=== PATIENT | male | born 2000 | race Caucasian/White ===

== ENCOUNTER 2024-09-13 10:59 | Observation (INO) ==
[2024-09-13 13:25] VITALS: BMI 72.6
[2024-09-13 13:43] LABS: BASOPHILS # (AUTO) 0.1 X10^3/uL (0.0-0.1); EOSINOPHILS # (AUTO) 0.2 x10^3/uL (0.0-0.2); EOSINOPHILS % (AUTO) 1.9 % (0.9-2.9); HEMATOCRIT 39.1 % (42.0-54.0); HEMOGLOBIN 13.3 g/dL (13.5-18.0); LYMPHOCYTES # (AUTO) 1.4 X10^3/uL (1.3-2.9); LYMPHOCYTES % (AUTO) 13.1 % (21.0-51.0); MEAN CORPUSCULAR HEMOGLOBIN 28.9 pg (27.0-34.0); MEAN PLATELET VOLUME 7.3 fL (7.4-11.0); MONOCYTES # (AUTO) 0.9 x10^3/uL (0.3-0.8); MONOCYTES % (AUTO) 8.4 % (0.0-13.0); NEUTROPHILS # (AUTO) 7.9 x10^3/uL (2.2-4.8); NEUTROPHILS % (AUTO) 75.6 % (42.0-75.0); PLATELET COUNT 320 X10^3/uL (150.0-450.0); RED CELL DISTRIBUTION WIDTH 13.3 % (11.6-16.5); WHITE BLOOD COUNT 10.4 X10^3/uL (3.6-10.0)
[2024-09-13] MEDS: NS 1,000 ML IV 1,000 ML IV SCH (13:44)
[2024-09-13] MEDS: VANCOMYCIN IV *PREMIX 1.5 G/300 ML BAG 1.5 G/300 ML PIGGYBACK IV ONE (13:44)
[2024-09-13 13:46] LABS: ERYTHROCYTE SEDIMENTATION RATE 53 MM/HOUR (0-15)
[2024-09-13] MEDS: PHARMACY COMMENT IV ONE (13:46)
[2024-09-13 13:57] LABS: ALANINE AMINOTRANSFERASE 43 Units/L (12-78); ALBUMIN 3.2 g/dL (3.4-5.0); ALKALINE PHOSPHATASE 63 Units/L (46-116); ASPARTATE AMINO TRANSFERASE 21 Units/L (15-37); BLOOD UREA NITROGEN 18 mg/dL (7-18); CALCIUM 9.2 mg/dL (8.5-10.1); CARBON DIOXIDE 28.9 mmol/L (21-32); CHLORIDE 103 mmol/L (98-107); COR CA(FOR HYPOALB) 9.8 mg/dL (8.5-10.1); CREATININE 0.95 mg/dL (0.70-1.30); GLUCOSE 85 mg/dL (65-99); POTASSIUM 4.1 mmol/L (3.5-5.1); SODIUM 140 mmol/L (136-145); TOTAL PROTEIN 7.9 g/dL (6.4-8.2); eGFR NON BLACK RACES > 60 (>60)
[2024-09-13] MEDS ORDERED: PHARMACY CONSULT - VANCOMYCIN XX SCH (14:00)
--- NOTE | 2024-09-13 18:04 | DR.H&P ---
H&P History & Physical for Day of: H&P Date: 09/13/24 Chief Complaint Chief Complaint: left breast cellulitis History of Present Illness History of Present Illness: Patient is a 24y/o male with a PMH of morbid obesity has had worsening left breast redness, warmth and pain for the past few days. He also noticed some discharge. Patient was a direct admit for IV antibiotics. Denies fever or chills. Plan: order CBC, CMP, wound and blood cultures, IV Vancomycin and fluids. CT- chest pending. Replace electrolytes prn. Consult Dr CAO. Monitor AM labs/imaging. Past Medical History Past Medical History: Anxiety and Depression Past Surgical History Surgical History: Tonsillectomy Family History Family Medical History: Diabetes Mellitus and Hypertension Social History Does patient currently use any type of tobacco product: No Alcohol Use: None Drug Use: None Medications Home Medications: Home Medications Medication Instructions Recorded Confirmed Type NK 09/13/24 09/13/24 History Allergies Allergies Allergy/AdvReac Type Severity Reaction Status Date / Time No Known Drug Allergies Allergy Verified 07/11/23 09:42 Labs 09/13/24 13:14 09/13/24 13:14 Labs: 09/13/24 13:23 Chest Wound Gram Stain - Final Laboratory WBC 10.4 X10^3/uL (3.6-10.0) H 09/13/24 13:14 RBC 4.60 X10^6/uL (4.7-6.0) L 09/13/24 13:14 Hgb 13.3 g/dL (13.5-18.0) L 09/13/24 13:14 Hct 39.1 % (42.0-54.0) L 09/13/24 13:14 MCV 85.0 fL (80.0-100.0) 09/13/24 13:14 MCH 28.9 pg (27.0-34.0) 09/13/24 13:14 MCHC 34.0 g/dL (33.0-35.0) 09/13/24 13:14 RDW 13.3 % (11.6-16.5) 09/13/24 13:14 Plt Count 320 X10^3/uL (150.0-450.0) 09/13/24 13:14 MPV 7.3 fL (7.4-11.0) L 09/13/24 13:14 Neut % (Auto) 75.6 % (42.0-75.0) H 09/13/24 13:14 Lymph % (Auto) 13.1 % (21.0-51.0) L 09/13/24 13:14 [place] % (Auto) 8.4 % (0.0-13.0) 09/13/24 13:14 Eos % (Auto) 1.9 % (0.9-2.9) 09/13/24 13:14 Baso % (Auto) 1.0 % (0.2-1.0) 09/13/24 13:14 Neut # (Auto) 7.9 x10^3/uL (2.2-4.8) H 09/13/24 13:14 Lymph # (Auto) 1.4 X10^3/uL (1.3-2.9) 09/13/24 13:14 [place] # (Auto) 0.9 x10^3/uL (0.3-0.8) H 09/13/24 13:14 Eos # (Auto) 0.2 x10^3/uL (0.0-0.2) 09/13/24 13:14 Baso # (Auto) 0.1 X10^3/uL (0.0-0.1) 09/13/24 13:14 Absolute Nucleated RBC 0.0 /100WBC 09/13/24 13:14 ESR 53 MM/HOUR (0-15) H 09/13/24 13:14 Sodium 140 mmol/L (136-145) 09/13/24 13:14 Corrected Sodium TNP 09/13/24 13:14 Potassium 4.1 mmol/L (3.5-5.1) 09/13/24 13:14 Chloride 103 mmol/L (98-107) 09/13/24 13:14 Carbon Dioxide 28.9 mmol/L (21-32) 09/13/24 13:14 BUN 18 mg/dL (7-18) 09/13/24 13:14 Creatinine 0.95 mg/dL (0.70-1.30) 09/13/24 13:14 Est GFR (MDRD) Af Amer > 60 (>60) 09/13/24 13:14 Est GFR (MDRD) Non-Af > 60 (>60) 09/13/24 13:14 Glucose 85 mg/dL (65-99) 09/13/24 13:14 Calcium 9.2 mg/dL (8.5-10.1) 09/13/24 13:14 Corrected Calcium 9.8 mg/dL (8.5-10.1) 09/13/24 13:14 Total Bilirubin 0.30 mg/dL (0.2-1.0) 09/13/24 13:14 AST 21 Units/L (15-37) 09/13/24 13:14 ALT 43 Units/L (12-78) 09/13/24 13:14 Alkaline Phosphatase 63 Units/L (46-116) 09/13/24 13:14 C-Reactive Protein 69.70 mg/L (0-3.0) H 09/13/24 13:14 Total Protein 7.9 g/dL (6.4-8.2) 09/13/24 13:14 Albumin 3.2 g/dL (3.4-5.0) L 09/13/24 13:14 Globulin 4.7 g/dL (2.5-4.5) H 09/13/24 13:14 Albumin/Globulin Ratio 0.7 Ratio (1.1-2.1) L 09/13/24 13:14 Random Vancomycin 0.2 ug/mL 09/13/24 13:14 Review of Systems Constitutional: No Symptoms Reported Eyes: No Symptoms Reported ENT: No Symptoms Reported Respiratory: No Symptoms Reported Cardiovascular: No Symptoms Reported Gastrointestinal: No Symptoms Reported Genitourinary: No Symptoms Reported Musculoskeletal: No Symptoms Reported Skin: Rash and Wound Neurological: No Symptoms Reported Physical Exam Vital Signs: Vital Signs Temperature 98.3 F Temperature 98.1 F Pulse Rate [Left Brachial] 93 Pulse Rate [Left Brachial] 98 Respiratory Rate 18 Respiratory Rate 19 Blood Pressure [Left Arm] 145/95 Blood Pressure [Left Arm] 174/104 O2 Sat by Pulse Oximetry 100 O2 Sat by Pulse Oximetry 96 Oriented: Normal Eyes: Normal Ear: Normal Nose: Normal Throat: Normal Respiratory: Clear Throughout Cardiovascular: Normal : Normal Auscultation: Bowel Sounds: Normal Palpation: Normal Tenderness: Normal Skin: Red, Tender, Wound and Other (left breast) Musculoskeletal: Normal Psychiatric: Normal Mood Description: Calm and Appropriate Affect: Normal Speech Pattern: Clear and Appropriate Assessment/Plan (1) Cellulitis and abscess of other specified site: Status: Acute (2) Drainage from wound: Status: Acute (3) BMI 70 and over, adult: Status: Acute (4) High blood pressure: Status: Acute Review H&P Reviewed: Yes Patient was examined?: Yes
--- NOTE | 2024-09-13 18:55 | CT ---
EXAM: CT CHEST WITH CONTRAST HISTORY: cellulitis; COMPARISON: None. TECHNIQUE: Axial CT images were obtained through the chest after the intravenous administration of contrast. Cor onal reformatted images were included. Informed written consent was obtained prior to contrast administration. All CT scans at this facility use dose modulation, iterative reconstruction, and/or weight based dosi ng when appropriate to reduce radiation dose to as low as reasonably achievable. FINDINGS: SUPPORT DEVICES: None HEART, VESSELS, AND MEDIASTINUM: Within normal limits. LYMPH NODES: No pathologically enlarged nodes. LUNGS AND PLEURA: Within normal limits. AIRWAYS: Within normal limits. UPPER ABDOMEN: Within normal limits. BONES: Within normal limits. IMPRESSION: No acute intrathoracic abnormality. No abnormal fluid collections. THIS IS AN ELECTRONICALLY VERIFIED FINAL REPORT 09/13/2024 6:52 PM - Electronically signed by Jesus Bishop MD
[2024-09-13] MEDS: TYLENOL 325 MG TAB PO PRN (19:50)
[2024-09-13] MEDS: VANCOMYCIN IV *PREMIX 1.25 G/250 ML BAG 1.25 G/250 ML PIGGYBACK IV SCH (21:09)
[2024-09-14] MEDS: OMNIPAQUE 350 mg/mL 100 mL BTL 100 ML ONE (07:15)
[2024-09-14 07:23] LABS: RED BLOOD COUNT 4.36 X10^6/uL (4.7-6.0)
[2024-09-14 07:33] LABS: BASOPHILS % (AUTO) 0.5 % (0.2-1.0); EOSINOPHILS # (AUTO) 0.5 x10^3/uL (0.0-0.2); EOSINOPHILS % (AUTO) 5.5 % (0.9-2.9); HEMATOCRIT 37.4 % (42.0-54.0); HEMOGLOBIN 12.5 g/dL (13.5-18.0); LYMPHOCYTES # (AUTO) 1.8 X10^3/uL (1.3-2.9); LYMPHOCYTES % (AUTO) 21.1 % (21.0-51.0); MEAN CORPUSCULAR HEMOGLOBIN 28.6 pg (27.0-34.0); MEAN CORPUSCULAR HGB CONC 33.4 g/dL (33.0-35.0); MEAN CORPUSCULAR VOLUME 85.6 fL (80.0-100.0); MEAN PLATELET VOLUME 7.5 fL (7.4-11.0); MONOCYTES # (AUTO) 0.7 x10^3/uL (0.3-0.8); MONOCYTES % (AUTO) 8.4 % (0.0-13.0); NEUTROPHILS # (AUTO) 5.5 x10^3/uL (2.2-4.8); NEUTROPHILS % (AUTO) 64.5 % (42.0-75.0); PLATELET COUNT 281 X10^3/uL (150.0-450.0); RED CELL DISTRIBUTION WIDTH 13.3 % (11.6-16.5); WHITE BLOOD COUNT 8.5 X10^3/uL (3.6-10.0)
[2024-09-14 07:44] LABS: ALANINE AMINOTRANSFERASE 43 Units/L (12-78); ALBUMIN 2.7 g/dL (3.4-5.0); ALKALINE PHOSPHATASE 60 Units/L (46-116); ASPARTATE AMINO TRANSFERASE 19 Units/L (15-37); BLOOD UREA NITROGEN 14 mg/dL (7-18); CALCIUM 8.7 mg/dL (8.5-10.1); CHLORIDE 103 mmol/L (98-107); COR CA(FOR HYPOALB) 9.7 mg/dL (8.5-10.1); CREATININE 0.78 mg/dL (0.70-1.30); GLUCOSE 87 mg/dL (65-99); SODIUM 137 mmol/L (136-145); eGFR NON BLACK RACES > 60 (>60)
--- NOTE | 2024-09-14 11:51 | DR.PROGNOT ---
HOSPITAL PROGRESS NOTE Progress Note for Day of: Progress Note Date: 09/14/24 Chief Complaint Chief Complaint: no new c/o . mild drainage from the abscess site . normal CBC . afebrile . Past Medical Family Social History Allergies: Allergies No Known Drug Allergies Allergy (Verified 07/11/23 09:42) Vital Signs Vital Signs: Vital Signs Temperature 97.5 F Temperature 98.3 F Pulse Rate [Left Brachial] 86 Pulse Rate [Left Brachial] 81 Respiratory Rate 20 Respiratory Rate 20 Respiratory Rate 19 Blood Pressure [Right Arm] 136/74 Blood Pressure [Right Arm] 121/84 O2 Sat by Pulse Oximetry 98 O2 Sat by Pulse Oximetry 98 Physical Exam Oriented: Normal Eyes: Normal Ear: Normal Nose: Normal Throat: Normal Cardiovascular: Normal : Normal GI:Auscultation: Normal GI:Palpation: Normal GI: Tenderness: Normal Skin: Red, Tender, Wound and Other (left breast) Musculoskeletal: Normal Psychiatric: Normal Mood Description: Calm and Appropriate Affect: Normal Speech Pattern: Clear and Appropriate Laboratory and Diagnostics 09/14/24 05:46 09/14/24 05:46 Labs: 09/13/24 13:23 Chest Wound Gram Stain - Final Laboratory WBC 8.5 X10^3/uL (3.6-10.0) 09/14/24 05:46 RBC 4.36 X10^6/uL (4.7-6.0) L 09/14/24 05:46 Hgb 12.5 g/dL (13.5-18.0) L 09/14/24 05:46 Hct 37.4 % (42.0-54.0) L 09/14/24 05:46 MCV 85.6 fL (80.0-100.0) 09/14/24 05:46 MCH 28.6 pg (27.0-34.0) 09/14/24 05:46 MCHC 33.4 g/dL (33.0-35.0) 09/14/24 05:46 RDW 13.3 % (11.6-16.5) 09/14/24 05:46 Plt Count 281 X10^3/uL (150.0-450.0) 09/14/24 05:46 MPV 7.5 fL (7.4-11.0) 09/14/24 05:46 Neut % (Auto) 64.5 % (42.0-75.0) 09/14/24 05:46 Lymph % (Auto) 21.1 % (21.0-51.0) 09/14/24 05:46 [place] % (Auto) 8.4 % (0.0-13.0) 09/14/24 05:46 Eos % (Auto) 5.5 % (0.9-2.9) H 09/14/24 05:46 Baso % (Auto) 0.5 % (0.2-1.0) 09/14/24 05:46 Neut # (Auto) 5.5 x10^3/uL (2.2-4.8) H 09/14/24 05:46 Lymph # (Auto) 1.8 X10^3/uL (1.3-2.9) 09/14/24 05:46 [place] # (Auto) 0.7 x10^3/uL (0.3-0.8) 09/14/24 05:46 Eos # (Auto) 0.5 x10^3/uL (0.0-0.2) H 09/14/24 05:46 Baso # (Auto) 0.0 X10^3/uL (0.0-0.1) 09/14/24 05:46 Absolute Nucleated RBC 0.1 /100WBC 09/14/24 05:46 ESR 53 MM/HOUR (0-15) H 09/13/24 13:14 Sodium 137 mmol/L (136-145) 09/14/24 05:46 Corrected Sodium TNP 09/14/24 05:46 Potassium 4.0 mmol/L (3.5-5.1) 09/14/24 05:46 Chloride 103 mmol/L (98-107) 09/14/24 05:46 Carbon Dioxide 26.0 mmol/L (21-32) 09/14/24 05:46 BUN 14 mg/dL (7-18) 09/14/24 05:46 Creatinine 0.78 mg/dL (0.70-1.30) 09/14/24 05:46 Est GFR (MDRD) Af Amer > 60 (>60) 09/14/24 05:46 Est GFR (MDRD) Non-Af > 60 (>60) 09/14/24 05:46 Glucose 87 mg/dL (65-99) 09/14/24 05:46 Calcium 8.7 mg/dL (8.5-10.1) 09/14/24 05:46 Corrected Calcium 9.7 mg/dL (8.5-10.1) 09/14/24 05:46 Total Bilirubin 0.30 mg/dL (0.2-1.0) 09/14/24 05:46 AST 19 Units/L (15-37) 09/14/24 05:46 ALT 43 Units/L (12-78) 09/14/24 05:46 Alkaline Phosphatase 60 Units/L (46-116) 09/14/24 05:46 C-Reactive Protein 69.70 mg/L (0-3.0) H 09/13/24 13:14 Total Protein 7.0 g/dL (6.4-8.2) 09/14/24 05:46 Albumin 2.7 g/dL (3.4-5.0) L 09/14/24 05:46 Globulin 4.3 g/dL (2.5-4.5) 09/14/24 05:46 Albumin/Globulin Ratio 0.6 Ratio (1.1-2.1) L 09/14/24 05:46 Random Vancomycin 0.2 ug/mL 09/13/24 13:14 Assessment and Plan 1: cellulitis Lt breast and chest wall with abscess formation ( draining ). same IV Vancomycin . 2: morbid obesity .
[2024-09-14 13:44] LABS: CREATININE 0.84 mg/dL (0.70-1.30); VANCOMYCIN,TROUGH 15.3 ug/mL (15-20)
[2024-09-14] MEDS: PHARMACY COMMENT IV ONE (14:10)
[2024-09-14] MEDS: PERCOCET TAB 5/325 MG PO PRN (17:27)
[2024-09-15 07:35] LABS: BASOPHILS # (AUTO) 0.1 X10^3/uL (0.0-0.1); BASOPHILS % (AUTO) 0.8 % (0.2-1.0); EOSINOPHILS # (AUTO) 0.5 x10^3/uL (0.0-0.2); EOSINOPHILS % (AUTO) 5.5 % (0.9-2.9); HEMATOCRIT 39.2 % (42.0-54.0); HEMOGLOBIN 13.2 g/dL (13.5-18.0); LYMPHOCYTES # (AUTO) 2.1 X10^3/uL (1.3-2.9); LYMPHOCYTES % (AUTO) 25.3 % (21.0-51.0); MEAN CORPUSCULAR HEMOGLOBIN 28.5 pg (27.0-34.0); MEAN CORPUSCULAR HGB CONC 33.6 g/dL (33.0-35.0); MEAN PLATELET VOLUME 7.6 fL (7.4-11.0); MONOCYTES # (AUTO) 0.7 x10^3/uL (0.3-0.8); MONOCYTES % (AUTO) 8.6 % (0.0-13.0); NEUTROPHILS # (AUTO) 5.1 x10^3/uL (2.2-4.8); NEUTROPHILS % (AUTO) 59.8 % (42.0-75.0); PLATELET COUNT 313 X10^3/uL (150.0-450.0); RED BLOOD COUNT 4.61 X10^6/uL (4.7-6.0); RED CELL DISTRIBUTION WIDTH 13.5 % (11.6-16.5); WHITE BLOOD COUNT 8.4 X10^3/uL (3.6-10.0)
[2024-09-15 08:02] LABS: ALANINE AMINOTRANSFERASE 48 Units/L (12-78); ALBUMIN 2.8 g/dL (3.4-5.0); ALKALINE PHOSPHATASE 63 Units/L (46-116); ASPARTATE AMINO TRANSFERASE 21 Units/L (15-37); BLOOD UREA NITROGEN 14 mg/dL (7-18); CALCIUM 8.8 mg/dL (8.5-10.1); CHLORIDE 105 mmol/L (98-107); COR CA(FOR HYPOALB) 9.8 mg/dL (8.5-10.1); CREATININE 0.82 mg/dL (0.70-1.30); GLUCOSE 88 mg/dL (65-99); POTASSIUM 4.2 mmol/L (3.5-5.1); SODIUM 139 mmol/L (136-145); TOTAL PROTEIN 7.2 g/dL (6.4-8.2); eGFR NON BLACK RACES > 60 (>60)
--- NOTE | 2024-09-15 09:21 | DR.PROGNOT ---
HOSPITAL PROGRESS NOTE Progress Note for Day of: Progress Note Date: 09/15/24 Chief Complaint Chief Complaint: no new c/o . mild drainage from the abscess site . normal CBC . afebrile . Past Medical Family Social History Allergies: Allergies No Known Drug Allergies Allergy (Verified 07/11/23 09:42) Vital Signs Vital Signs: Vital Signs Temperature 98.1 F Pulse Rate [Left Brachial] 81 Respiratory Rate 20 Blood Pressure [Right Arm] 125/69 O2 Sat by Pulse Oximetry 98 Physical Exam Oriented: Normal Eyes: Normal Ear: Normal Nose: Normal Throat: Normal Cardiovascular: Normal : Normal GI:Auscultation: Normal GI:Palpation: Normal GI: Tenderness: Normal Skin: Red, Tender, Wound and Other (left breast) Musculoskeletal: Normal Psychiatric: Normal Mood Description: Calm and Appropriate Affect: Normal Speech Pattern: Clear and Appropriate Laboratory and Diagnostics 09/15/24 06:00 09/15/24 06:00 Labs: 09/13/24 13:23 Chest Wound Gram Stain - Final 09/13/24 13:23 Chest Wound Culture - Preliminary Laboratory WBC 8.4 X10^3/uL (3.6-10.0) 09/15/24 06:00 RBC 4.61 X10^6/uL (4.7-6.0) L 09/15/24 06:00 Hgb 13.2 g/dL (13.5-18.0) L 09/15/24 06:00 Hct 39.2 % (42.0-54.0) L 09/15/24 06:00 MCV 85.0 fL (80.0-100.0) 09/15/24 06:00 MCH 28.5 pg (27.0-34.0) 09/15/24 06:00 MCHC 33.6 g/dL (33.0-35.0) 09/15/24 06:00 RDW 13.5 % (11.6-16.5) 09/15/24 06:00 Plt Count 313 X10^3/uL (150.0-450.0) 09/15/24 06:00 MPV 7.6 fL (7.4-11.0) 09/15/24 06:00 Neut % (Auto) 59.8 % (42.0-75.0) 09/15/24 06:00 Lymph % (Auto) 25.3 % (21.0-51.0) 09/15/24 06:00 [place] % (Auto) 8.6 % (0.0-13.0) 09/15/24 06:00 Eos % (Auto) 5.5 % (0.9-2.9) H 09/15/24 06:00 Baso % (Auto) 0.8 % (0.2-1.0) 09/15/24 06:00 Neut # (Auto) 5.1 x10^3/uL (2.2-4.8) H 09/15/24 06:00 Lymph # (Auto) 2.1 X10^3/uL (1.3-2.9) 09/15/24 06:00 [place] # (Auto) 0.7 x10^3/uL (0.3-0.8) 09/15/24 06:00 Eos # (Auto) 0.5 x10^3/uL (0.0-0.2) H 09/15/24 06:00 Baso # (Auto) 0.1 X10^3/uL (0.0-0.1) 09/15/24 06:00 Absolute Nucleated RBC 0.1 /100WBC 09/15/24 06:00 ESR 53 MM/HOUR (0-15) H 09/13/24 13:14 Sodium 139 mmol/L (136-145) 09/15/24 06:00 Corrected Sodium TNP 09/15/24 06:00 Potassium 4.2 mmol/L (3.5-5.1) 09/15/24 06:00 Chloride 105 mmol/L (98-107) 09/15/24 06:00 Carbon Dioxide 26.0 mmol/L (21-32) 09/15/24 06:00 BUN 14 mg/dL (7-18) 09/15/24 06:00 Creatinine 0.82 mg/dL (0.70-1.30) 09/15/24 06:00 Est GFR (MDRD) Af Amer > 60 (>60) 09/15/24 06:00 Est GFR (MDRD) Non-Af > 60 (>60) 09/15/24 06:00 Glucose 88 mg/dL (65-99) 09/15/24 06:00 Calcium 8.8 mg/dL (8.5-10.1) 09/15/24 06:00 Corrected Calcium 9.8 mg/dL (8.5-10.1) 09/15/24 06:00 Total Bilirubin 0.20 mg/dL (0.2-1.0) 09/15/24 06:00 AST 21 Units/L (15-37) 09/15/24 06:00 ALT 48 Units/L (12-78) 09/15/24 06:00 Alkaline Phosphatase 63 Units/L (46-116) 09/15/24 06:00 C-Reactive Protein 69.70 mg/L (0-3.0) H 09/13/24 13:14 Total Protein 7.2 g/dL (6.4-8.2) 09/15/24 06:00 Albumin 2.8 g/dL (3.4-5.0) L 09/15/24 06:00 Globulin 4.4 g/dL (2.5-4.5) 09/15/24 06:00 Albumin/Globulin Ratio 0.6 Ratio (1.1-2.1) L 09/15/24 06:00 Vancomycin Trough 15.3 ug/mL (15-20) 09/14/24 13:15 Random Vancomycin 0.2 ug/mL 09/13/24 13:14 Assessment and Plan 1: cellulitis Lt breast and chest wall with abscess formation ( draining ). same IV Vancomycin . 2: morbid obesity .
[2024-09-15] MEDS: ZESTRIL TAB 5 MG PO SCH (11:48)
[2024-09-15 13:43] LABS: CREATININE 0.76 mg/dL (0.70-1.30); VANCOMYCIN,TROUGH 6.5 ug/mL (15-20)
[2024-09-15] MEDS: VANCOMYCIN HCL 500 MG, VANCOMYCIN HCL 1 G in D5W 250 ML IV 250 ML IV SCH (14:30)
--- NOTE | 2024-09-15 20:18 | US ---
PROCEDURE: Left upper flank soft tissue ultrasound.HISTORY: left upper flank / cellulitis / r/o abcess; PT STATES STARTED OUT A BUMP THEN STARTED TURNING RED AND SPREADING, LEFT UPPER FLANK AREA CELLULITS,ABCESS .TECHNIQUE: Lozano scale and color flow evaluation was performed of the left upper flank region in the region of the patient's palpable lump.COMPARISON: None.TECHNICAL QUALITY: Satisfactory.FINDINGS:3.5 x 1.3 x 0.8 cm loculated complex fluid collection geographically shaped in subcutaneous fat left flank in the symptomatic region could represent abscess, seroma, or hematoma.No other abnormality identified.IMPRESSION:Complex fluid collection left flank could represent abscess, hematoma, or seroma.THIS IS AN ELECTRONICALLY VERIFIED FINAL REPORT09/15/2024 8:12 PM - Electronically signed by Ronnie Shetty MD
[2024-09-16 06:47] LABS: BASOPHILS # (AUTO) 0.1 X10^3/uL (0.0-0.1); BASOPHILS % (AUTO) 0.7 % (0.2-1.0); EOSINOPHILS # (AUTO) 0.6 x10^3/uL (0.0-0.2); EOSINOPHILS % (AUTO) 6.3 % (0.9-2.9); HEMOGLOBIN 12.9 g/dL (13.5-18.0); LYMPHOCYTES % (AUTO) 21.5 % (21.0-51.0); MEAN CORPUSCULAR HEMOGLOBIN 28.9 pg (27.0-34.0); MEAN CORPUSCULAR HGB CONC 33.9 g/dL (33.0-35.0); MEAN CORPUSCULAR VOLUME 85.3 fL (80.0-100.0); MEAN PLATELET VOLUME 7.3 fL (7.4-11.0); MONOCYTES # (AUTO) 0.7 x10^3/uL (0.3-0.8); NEUTROPHILS # (AUTO) 5.9 x10^3/uL (2.2-4.8); NEUTROPHILS % (AUTO) 63.5 % (42.0-75.0); PLATELET COUNT 317 X10^3/uL (150.0-450.0); RED BLOOD COUNT 4.45 X10^6/uL (4.7-6.0); RED CELL DISTRIBUTION WIDTH 13.4 % (11.6-16.5); WHITE BLOOD COUNT 9.3 X10^3/uL (3.6-10.0)
[2024-09-16 07:18] LABS: ALANINE AMINOTRANSFERASE 59 Units/L (12-78); ALBUMIN 2.9 g/dL (3.4-5.0); ALKALINE PHOSPHATASE 61 Units/L (46-116); ASPARTATE AMINO TRANSFERASE 26 Units/L (15-37); BLOOD UREA NITROGEN 11 mg/dL (7-18); CALCIUM 8.7 mg/dL (8.5-10.1); CARBON DIOXIDE 25.2 mmol/L (21-32); CHLORIDE 103 mmol/L (98-107); COR CA(FOR HYPOALB) 9.6 mg/dL (8.5-10.1); CREATININE 0.78 mg/dL (0.70-1.30); GLUCOSE 95 mg/dL (65-99); SODIUM 138 mmol/L (136-145); TOTAL PROTEIN 7.1 g/dL (6.4-8.2); eGFR NON BLACK RACES > 60 (>60)
--- NOTE | 2024-09-16 10:23 | PCM.PROG ---
Progress Note Progress Note for Day of Date of Exam: 09/16/24 Subjective Subjective: Patient seen at bedside, no acute events overnight. He is feeling better. He is currently admitted for left sided flank/chest wall cellulitis and abscess. Dr Jimenez is following. His Wound Cx did grow MRSA. He remains on IV Vancomycin. The redness and swelling does seem to be better. He states it's not as hard and painful as it was initially. Left flank US showed complete fluid collection, abscess vs hematoma/seroma. Labs/imaging reviewed: -WBC 9.3 Hgb 12.9 K 4.0 BUN/Cr 11/0.78 -Blood Cx negative -Wound Cx: MRSA -left flank US reviewed Plan: continue IV Vancomycin, follow final Cx. Continue pain control and elevation as tolerated. Follow surgery recommendations. Monitor red ness/swelling. Continue home medications. Replace electrolytes prn. Monitor AM labs/imaging. Past Medical Family Social History Allergies: Allergies No Known Drug Allergies Allergy (Verified 07/11/23 09:42) Vital Signs and I&O's Vital Signs: Vital Signs Temperature 97.9 F Temperature 97.9 F Pulse Rate [Left Brachial] 84 Pulse Rate [Left Brachial] 81 Respiratory Rate 20 Respiratory Rate 20 Respiratory Rate 21 Respiratory Rate 20 Blood Pressure [Right Arm] 132/78 Blood Pressure [Left Arm] 140/93 O2 Sat by Pulse Oximetry 97 O2 Sat by Pulse Oximetry 94 Intake and Output: Intake & Output 09/13/24 09/14/24 09/15/24 09/16/24 23:59 23:59 23:59 23:59 Intake Total 309 / 309 4192 / 4192 3449 / 3449 740 / 740 Balance 309 / 309 4192 / 4192 3449 / 3449 740 / 740 Physical Exam Oriented: Normal Eyes: Normal Ear: Normal Nose: Normal Throat: Normal Respiratory: Normal Cardiovascular: Normal Auscultation: Bowel Sounds: Normal Palpation: Normal Tenderness: Normal Skin: Red, Tender, Wound and Other (left breast) Musculoskeletal: Normal Psychiatric: Normal Mood Description: Calm and Appropriate Affect: Normal Speech Pattern: Clear and Appropriate Laboratory and Diagnostics 09/16/24 05:35 09/16/24 05:35 Labs: 09/13/24 13:23 Chest Wound Gram Stain - Final 09/13/24 13:23 Chest Wound Culture - Final Methicillin Resis Staph Aureus 09/13/24 13:30 Blood Blood Culture - Preliminary 09/13/24 13:14 Blood Blood Culture - Preliminary Laboratory WBC 9.3 X10^3/uL (3.6-10.0) 09/16/24 05:35 RBC 4.45 X10^6/uL (4.7-6.0) L 09/16/24 05:35 Hgb 12.9 g/dL (13.5-18.0) L 09/16/24 05:35 Hct 38.0 % (42.0-54.0) L 09/16/24 05:35 MCV 85.3 fL (80.0-100.0) 09/16/24 05:35 MCH 28.9 pg (27.0-34.0) 09/16/24 05:35 MCHC 33.9 g/dL (33.0-35.0) 09/16/24 05:35 RDW 13.4 % (11.6-16.5) 09/16/24 05:35 Plt Count 317 X10^3/uL (150.0-450.0) 09/16/24 05:35 MPV 7.3 fL (7.4-11.0) L 09/16/24 05:35 Neut % (Auto) 63.5 % (42.0-75.0) 09/16/24 05:35 Lymph % (Auto) 21.5 % (21.0-51.0) 09/16/24 05:35 [place] % (Auto) 8.0 % (0.0-13.0) 09/16/24 05:35 Eos % (Auto) 6.3 % (0.9-2.9) H 09/16/24 05:35 Baso % (Auto) 0.7 % (0.2-1.0) 09/16/24 05:35 Neut # (Auto) 5.9 x10^3/uL (2.2-4.8) H 09/16/24 05:35 Lymph # (Auto) 2.0 X10^3/uL (1.3-2.9) 09/16/24 05:35 [place] # (Auto) 0.7 x10^3/uL (0.3-0.8) 09/16/24 05:35 Eos # (Auto) 0.6 x10^3/uL (0.0-0.2) H 09/16/24 05:35 Baso # (Auto) 0.1 X10^3/uL (0.0-0.1) 09/16/24 05:35 Absolute Nucleated RBC 0.1 /100WBC 09/16/24 05:35 ESR 53 MM/HOUR (0-15) H 09/13/24 13:14 Sodium 138 mmol/L (136-145) 09/16/24 05:35 Corrected Sodium TNP 09/16/24 05:35 Potassium 4.0 mmol/L (3.5-5.1) 09/16/24 05:35 Chloride 103 mmol/L (98-107) 09/16/24 05:35 Carbon Dioxide 25.2 mmol/L (21-32) 09/16/24 05:35 BUN 11 mg/dL (7-18) 09/16/24 05:35 Creatinine 0.78 mg/dL (0.70-1.30) 09/16/24 05:35 Est GFR (MDRD) Af Amer > 60 (>60) 09/16/24 05:35 Est GFR (MDRD) Non-Af > 60 (>60) 09/16/24 05:35 Glucose 95 mg/dL (65-99) 09/16/24 05:35 Calcium 8.7 mg/dL (8.5-10.1) 09/16/24 05:35 Corrected Calcium 9.6 mg/dL (8.5-10.1) 09/16/24 05:35 Total Bilirubin 0.20 mg/dL (0.2-1.0) 09/16/24 05:35 AST 26 Units/L (15-37) 09/16/24 05:35 ALT 59 Units/L (12-78) 09/16/24 05:35 Alkaline Phosphatase 61 Units/L (46-116) 09/16/24 05:35 C-Reactive Protein 69.70 mg/L (0-3.0) H 09/13/24 13:14 Total Protein 7.1 g/dL (6.4-8.2) 09/16/24 05:35 Albumin 2.9 g/dL (3.4-5.0) L 09/16/24 05:35 Globulin 4.2 g/dL (2.5-4.5) 09/16/24 05:35 Albumin/Globulin Ratio 0.7 Ratio (1.1-2.1) L 09/16/24 05:35 Vancomycin Trough 6.5 ug/mL (15-20) L 09/15/24 13:08 Random Vancomycin 0.2 ug/mL 09/13/24 13:14 Plan (1) Cellulitis and abscess of other specified site: Status: Acute (2) Drainage from wound: Status: Acute (3) BMI 70 and over, adult: Status: Acute (4) High blood pressure: Status: Acute Qualifiers: Hypertension type: primary hypertension Qualified Code(s): I10 - Essential (primary) hypertension
[2024-09-16 14:29] LABS: CREATININE 0.8 mg/dL (0.70-1.30); VANCOMYCIN,TROUGH 8.2 ug/mL (15-20)
[2024-09-16] MEDS: PHARMACY COMMENT IV NR (15:40)
[2024-09-17 06:26] LABS: BASOPHILS % (AUTO) 0.5 % (0.2-1.0); EOSINOPHILS # (AUTO) 0.5 x10^3/uL (0.0-0.2); EOSINOPHILS % (AUTO) 5.1 % (0.9-2.9); HEMATOCRIT 39.9 % (42.0-54.0); HEMOGLOBIN 13.4 g/dL (13.5-18.0); LYMPHOCYTES # (AUTO) 1.9 X10^3/uL (1.3-2.9); LYMPHOCYTES % (AUTO) 19.2 % (21.0-51.0); MEAN CORPUSCULAR HEMOGLOBIN 28.6 pg (27.0-34.0); MEAN CORPUSCULAR HGB CONC 33.6 g/dL (33.0-35.0); MEAN CORPUSCULAR VOLUME 85.1 fL (80.0-100.0); MEAN PLATELET VOLUME 7.3 fL (7.4-11.0); MONOCYTES # (AUTO) 0.6 x10^3/uL (0.3-0.8); MONOCYTES % (AUTO) 6.7 % (0.0-13.0); NEUTROPHILS # (AUTO) 6.7 x10^3/uL (2.2-4.8); NEUTROPHILS % (AUTO) 68.5 % (42.0-75.0); PLATELET COUNT 363 X10^3/uL (150.0-450.0); RED BLOOD COUNT 4.69 X10^6/uL (4.7-6.0); RED CELL DISTRIBUTION WIDTH 13.6 % (11.6-16.5); WHITE BLOOD COUNT 9.7 X10^3/uL (3.6-10.0)
[2024-09-17 06:57] LABS: BLOOD UREA NITROGEN 11 mg/dL (7-18); CALCIUM 8.9 mg/dL (8.5-10.1); CARBON DIOXIDE 26.8 mmol/L (21-32); CHLORIDE 103 mmol/L (98-107); CREATININE 0.88 mg/dL (0.70-1.30); GLUCOSE 92 mg/dL (65-99); POTASSIUM 3.9 mmol/L (3.5-5.1); SODIUM 139 mmol/L (136-145); eGFR NON BLACK RACES > 60 (>60)
[2024-09-17 07:59] VITALS: BP 138/85; PULSE 88; RESP 20; TEMP 97.7; O2SAT 97
[2024-09-17] MEDS ORDERED: VANCOMYCIN IV *PREMIX 1.5 G/300 ML BAG 1.5 G/300 ML PIGGYBACK IV SCH (14:00)
--- NOTE | 2024-09-23 15:04 | W.DIS.FURT ---
Summary of Discharge Discharge Summary of Date Date of Exam: 09/17/24 Admission Date Date of Admission: 09/13/24 Admission Diagnosis Hospital Course: Patient is a 24y/o male with a PMH of morbid obesity has had worsening left breast redness, warmth and pain for the past few days. He also noticed some discharge. Patient was a direct admit for IV antibiotics. Denies fever or chills. Blood culture and wound cultures were collected, patient was started on fluids and IV antibiotics. CT chest and ultrasound were also done, see report. Wound cultures did grow MRSA. Dr. Jimenez with general surgery was also consulted. He did not recommend any surgical intervention at this time. Patient's pain, swelling and redness improved. He was feeling better. He was stable to be discharged home on p.o. antibiotics. Home health services were also arranged. He will follow-up with PCP and Dr. Jimenez as scheduled. Vital Signs: Vital Signs (72 hours) 09/14/24 17:27 09/14/24 09:42 09/14/24 10:24 Temperature Pulse Rate [Left Brachial] Respiratory Rate 20 18 Blood Pressure [Left Arm] Blood Pressure [Right Arm] O2 Sat by Pulse Oximetry Oxygen Delivery Method Room Air 09/14/24 12:00 09/14/24 16:00 09/14/24 18:27 Temperature 97.6 F 97.8 F Pulse Rate [Left Brachial] 88 100 H Respiratory Rate 19 19 18 Blood Pressure [Left Arm] Blood Pressure [Right Arm] 161/78 147/85 O2 Sat by Pulse Oximetry 92 L 96 Oxygen Delivery Method Room Air Room Air 09/14/24 19:00 09/14/24 20:00 09/14/24 21:09 Temperature 98.0 F Pulse Rate [Left Brachial] 93 H Respiratory Rate 20 19 Blood Pressure [Left Arm] Blood Pressure [Right Arm] 139/95 O2 Sat by Pulse Oximetry 96 Oxygen Delivery Method Room Air Room Air 09/14/24 22:09 09/14/24 23:41 09/15/24 04:00 Temperature 98.1 F 98.1 F Pulse Rate [Left Brachial] 83 81 Respiratory Rate 22 21 20 Blood Pressure [Left Arm] Blood Pressure [Right Arm] 141/69 125/69 O2 Sat by Pulse Oximetry 96 98 Oxygen Delivery Method Room Air Room Air 09/15/24 17:52 09/15/24 08:00 09/15/24 07:00 Temperature 97.5 F L Pulse Rate [Left Brachial] 81 Respiratory Rate 18 19 Blood Pressure [Left Arm] Blood Pressure [Right Arm] 147/90 O2 Sat by Pulse Oximetry 95 Oxygen Delivery Method Room Air Room Air 09/15/24 12:00 09/15/24 16:00 09/15/24 19:00 Temperature 97.6 F 98.0 F Pulse Rate [Left Brachial] 90 89 Respiratory Rate 18 19 Blood Pressure [Left Arm] Blood Pressure [Right Arm] 140/75 144/87 O2 Sat by Pulse Oximetry 98 97 Oxygen Delivery Method Room Air Room Air Room Air 09/15/24 20:00 09/15/24 18:52 09/16/24 00:00 Temperature 98.2 F 97.8 F Pulse Rate [Left Brachial] 99 H 87 Respiratory Rate 20 18 24 Blood Pressure [Left Arm] 138/78 143/56 Blood Pressure [Right Arm] O2 Sat by Pulse Oximetry 93 L 94 L Oxygen Delivery Method Room Air Room Air 09/16/24 04:00 09/16/24 08:14 09/16/24 08:00 Temperature 97.9 F 97.9 F Pulse Rate [Left Brachial] 81 84 Respiratory Rate 20 20 21 Blood Pressure [Left Arm] 140/93 Blood Pressure [Right Arm] 132/78 O2 Sat by Pulse Oximetry 94 L 97 Oxygen Delivery Method Room Air Room Air 09/16/24 07:00 09/16/24 09:14 09/16/24 11:59 Temperature 97.4 F L Pulse Rate [Left Brachial] 90 Respiratory Rate 20 21 Blood Pressure [Left Arm] 137/88 Blood Pressure [Right Arm] O2 Sat by Pulse Oximetry 97 Oxygen Delivery Method Room Air Room Air 09/16/24 16:00 09/16/24 19:11 09/16/24 19:00 Temperature 98.3 F Pulse Rate [Left Brachial] 85 Respiratory Rate 21 21 Blood Pressure [Left Arm] 149/92 Blood Pressure [Right Arm] O2 Sat by Pulse Oximetry 97 Oxygen Delivery Method Room Air Room Air 09/16/24 19:58 09/16/24 20:11 09/17/24 00:00 Temperature 98.1 F 98 F Pulse Rate [Left Brachial] 97 H 77 Respiratory Rate 21 21 21 Blood Pressure [Left Arm] 138/80 133/87 Blood Pressure [Right Arm] O2 Sat by Pulse Oximetry 95 91 L Oxygen Delivery Method Room Air Room Air 09/17/24 04:00 09/17/24 07:00 09/17/24 07:58 Temperature 97 F L 97.7 F Pulse Rate [Left Brachial] 70 88 Respiratory Rate 21 20 Blood Pressure [Left Arm] 118/58 138/85 Blood Pressure [Right Arm] O2 Sat by Pulse Oximetry 92 L 97 Oxygen Delivery Method Room Air Room Air Room Air Labs: Laboratory Last Values WBC 9.7 X10^3/uL (3.6-10.0) 09/17/24 05:47 RBC 4.69 X10^6/uL (4.7-6.0) L 09/17/24 05:47 Hgb 13.4 g/dL (13.5-18.0) L 09/17/24 05:47 Hct 39.9 % (42.0-54.0) L 09/17/24 05:47 MCV 85.1 fL (80.0-100.0) 09/17/24 05:47 MCH 28.6 pg (27.0-34.0) 09/17/24 05:47 MCHC 33.6 g/dL (33.0-35.0) 09/17/24 05:47 RDW 13.6 % (11.6-16.5) 09/17/24 05:47 Plt Count 363 X10^3/uL (150.0-450.0) 09/17/24 05:47 MPV 7.3 fL (7.4-11.0) L 09/17/24 05:47 Neut % (Auto) 68.5 % (42.0-75.0) 09/17/24 05:47 Lymph % (Auto) 19.2 % (21.0-51.0) L 09/17/24 05:47 [place] % (Auto) 6.7 % (0.0-13.0) 09/17/24 05:47 Eos % (Auto) 5.1 % (0.9-2.9) H 09/17/24 05:47 Baso % (Auto) 0.5 % (0.2-1.0) 09/17/24 05:47 Neut # (Auto) 6.7 x10^3/uL (2.2-4.8) H 09/17/24 05:47 Lymph # (Auto) 1.9 X10^3/uL (1.3-2.9) 09/17/24 05:47 [place] # (Auto) 0.6 x10^3/uL (0.3-0.8) 09/17/24 05:47 Eos # (Auto) 0.5 x10^3/uL (0.0-0.2) H 09/17/24 05:47 Baso # (Auto) 0.0 X10^3/uL (0.0-0.1) 09/17/24 05:47 Absolute Nucleated RBC 0.0 /100WBC 09/17/24 05:47 ESR 53 MM/HOUR (0-15) H 09/13/24 13:14 Sodium 139 mmol/L (136-145) 09/17/24 05:47 Corrected Sodium TNP 09/17/24 05:47 Potassium 3.9 mmol/L (3.5-5.1) 09/17/24 05:47 Chloride 103 mmol/L (98-107) 09/17/24 05:47 Carbon Dioxide 26.8 mmol/L (21-32) 09/17/24 05:47 BUN 11 mg/dL (7-18) 09/17/24 05:47 Creatinine 0.88 mg/dL (0.70-1.30) 09/17/24 05:47 Est GFR (MDRD) Af Amer > 60 (>60) 09/17/24 05:47 Est GFR (MDRD) Non-Af > 60 (>60) 09/17/24 05:47 Glucose 92 mg/dL (65-99) 09/17/24 05:47 Calcium 8.9 mg/dL (8.5-10.1) 09/17/24 05:47 Corrected Calcium 9.6 mg/dL (8.5-10.1) 09/16/24 05:35 Total Bilirubin 0.20 mg/dL (0.2-1.0) 09/16/24 05:35 AST 26 Units/L (15-37) 09/16/24 05:35 ALT 59 Units/L (12-78) 09/16/24 05:35 Alkaline Phosphatase 61 Units/L (46-116) 09/16/24 05:35 C-Reactive Protein 69.70 mg/L (0-3.0) H 09/13/24 13:14 Total Protein 7.1 g/dL (6.4-8.2) 09/16/24 05:35 Albumin 2.9 g/dL (3.4-5.0) L 09/16/24 05:35 Globulin 4.2 g/dL (2.5-4.5) 09/16/24 05:35 Albumin/Globulin Ratio 0.7 Ratio (1.1-2.1) L 09/16/24 05:35 Vancomycin Trough 8.2 ug/mL (15-20) L 09/16/24 13:38 Random Vancomycin 0.2 ug/mL 09/13/24 13:14 Reason For Visit: LEFT CHEST WALL CELLULITIS Discharge Diagnosis All Active Problems (Updated 09/16/24 @ 10:22 by Rocío rGiffin MD) Elevated BP without diagnosis of hypertension (Acute) BMI 70 and over, adult (Acute) Drainage from wound (Acute) Pain (Acute) Cellulitis and abscess of other specified site (Acute) Sciatica (Acute) Chronic allergic rhinitis (Acute) High blood pressure (Acute) Influenza B (Acute) Urticaria (Acute) Morbid obesity (Acute) Allergic reaction (Acute) Strep pharyngitis (Acute) Dehydration, mild (Acute) Suicide attempt by drug overdose (Acute) Depression (Acute) Plan of Treatment: Continue with present treatment and follow up plan. Pt is to keep follow up appointment as instructed and take medications as ordered. Discharge Medications Discharge Medications: No Known Drug Allergies Allergy (Verified 07/11/23 09:42) New Prescriptions clindamycin HCl 300 mg capsule 300 mg PO Q8H #30 caps 09/17/24 [Rx] lisinopril 5 mg tablet 5 mg PO DAILY 30 days #30 tabs 09/17/24 [Rx] Discharge Disposition Discharge Disposition: To home Discharge Condition: Stable Discharge Plan Discharge Plan Hospital Course: Patient is a 24y/o male with a PMH of morbid obesity has had worsening left breast redness, warmth and pain for the past few days. He also noticed some discharge. Patient was a direct admit for IV antibiotics. Denies fever or chills. Blood culture and wound cultures were collected, patient was started on fluids and IV antibiotics. CT chest and ultrasound were also done, see report. Wound cultures did grow MRSA. Dr. Jimenez with general surgery was also consulted. He did not recommend any surgical intervention at this time. Patient's pain, swelling and redness improved. He was feeling better. He was stable to be discharged home on p.o. antibiotics. Home health services were also arranged. He will follow-up with PCP and Dr. Jimenez as scheduled. Patient Disposition: 01 HOME, SELF-CARE Condition: Stable Health Concerns: Post Hospitalization: new medications and changes needed to prevent readmission or further decline. Pt educated and given instructions on all concerns. Care Plan Goals: Problem: Infection Goal: Temperature within normal limits. Resolved infection. Instructions: Follow provided instructions. Follow up with primary physician as directed. Contact primary care physician or report to the closest Emergency Room if condition worsens. Plan of Treatment: Continue with present treatment and follow up plan. Pt is to keep follow up appointment as instructed and take medications as ordered. Prescription drug monitoring program results: PDMP reviewed and no concerns identified Prescriptions: New clindamycin HCl 300 mg Capsule 300 mg PO Q8H Qty: 30 0RF lisinopril 5 mg Tablet 5 mg PO DAILY 30 Days Qty: 30 0RF Orders to Discharge Patient Discharge Orders: Discharge (Routine); Ordered 09/17/24 Ordered By: Rocío Griffin Follow ups/Referrals Follow ups/Referrals: Reese Molina MD [Primary Care Provider] - 09/23/24 3:00 pm LEIGH FIGUEROA [STAFF PHYSICIAN] - 09/24/24 3:30 pm Instructions Instructions: Skin Abscess, [id number], MRSA Infection, Self-Care, Adult, Cellulitis, Adult, [id number] Activity Restrictions/Additional Instructions: Clean with saline daily. Pat dry and cover 4x4 gauze and ABD pad, secure with tape. Stand Alone Forms: Excuse From Work or School, Find Help Web Site, Post Hospital Follow Up Care
== END 2024-09-17 11:10 | disposition home or self-care (01) ==
LOC: MED/SURG
PROVIDERS: ADMIT Family Medicine; ATTEND Family Medicine
DX: Z16.29 Resistance to other single specified antibiotic; L02.213 Cutaneous abscess of chest wall; E66.01 Morbid (severe) obesity due to excess calories; I10 Essential (primary) hypertension; F41.8 Other specified anxiety disorders; R70.0 Elevated erythrocyte sedimentation rate; R79.82 Elevated C-reactive protein (CRP); Z16.23 Resistance to quinolones and fluoroquinolones; N62 Hypertrophy of breast; Z29.89 Encounter for other specified prophylactic measures; N61.1 Abscess of the breast and nipple; L03.313 Cellulitis of chest wall; Z68.45 Body mass index [BMI] 70 or greater, adult; Z16.12 Extended spectrum beta lactamase (ESBL) resistance; B95.62 Methicillin resistant Staphylococcus aureus infection as the cause of diseases classified elsewhere